=== PATIENT | female | born 1930 | race Caucasian/White ===

== ENCOUNTER 2017-04-23 06:53 | Emergency (ER) | payer MEDICARE, MEDICAID ==
[~2017-04-23] VITALS: Ht 160 cm; Wt 65.8 kg
[~2017-04-23 06:53] MED LIST: ACET325T53 PO; AMLO5TAB4 PO; AZIT500T2 PO; CLOP75TA15 PO; ESCI10TA PO; GABA-536 PO; LORA10TA7 PO; Meclizine Hcl PO; Metoprolol Tartrate PO; NITR100C6 PO; OLME40TA12 PO; PRED20TA PO
[2017-04-23] MEDS ORDERED: diphenhydrAMINE 50 MG/1 ML VIAL IM ONE (07:30)
--- NOTE | 2017-04-23 07:32 | NUR ---
mse completed, benadryl administered, pt d/c'd home, aci rx x1 given. pt ambulated w/o diff/ daughter present and to drive.
[2017-04-23 07:35] VITALS: BP 142/75
[2017-04-23] MEDS ORDERED: diphenhydrAMINE 50 MG/1 ML VIAL ONE (07:40)
== END 2017-04-23 07:36 | disposition home or self-care (01) ==
LOC: ER 06:56
DX: L25.9 Unspecified contact dermatitis, unspecified cause (principal); I10 Essential (primary) hypertension; M06.9 Rheumatoid arthritis, unspecified
CPT/HCPCS: A4663; J1200

== ENCOUNTER 2017-04-24 05:52 | Emergency (ER) | payer MEDICARE, MEDICAID ==
[~2017-04-24] VITALS: Ht 149.9 cm; Wt 68.0 kg
[2017-04-24] MEDS ORDERED: methylPREDNISolone SOD SUCC 125 MG/2 ML VIAL IV ONE (06:15)
[2017-04-24] MEDS ORDERED: diphenhydrAMINE 50 MG/1 ML VIAL IV ONE (06:15)
[2017-04-24] MEDS ORDERED: FAMOTIDINE. 20 MG/2 ML VIAL IV ONE ×2 (06:15→06:29)
--- NOTE | 2017-04-24 06:15 | NUR ---
PATIENT BROUGHT BACK BY DAUGHTER FOR WORSENING RASH ON FACE AND BODY, WAS SEEN HERE YESTERDAY FOR SIMILAR COMPLAINT
[2017-04-24] MEDS ORDERED: methylPREDNISolone SOD SUCC 125 MG/2 ML VIAL ONE (06:29)
[2017-04-24] MEDS ORDERED: diphenhydrAMINE 50 MG/1 ML VIAL ONE (06:29)
--- NOTE | 2017-04-24 06:34 | NUR ---
IV removed. Catheter intact and site benign. Pressure and 4x4 gauze applied to site. No bleeding noted.
[2017-04-24 06:36] VITALS: BP 125/72
--- NOTE | 2017-04-24 06:37 | NUR ---
Patient discharged to home in stable conditon WITH DAUGHTER TAKING PATIENT HOME. Written and verbal after care instructions given. Patient verbalizes understanding of instructions. WALKED OUT OF ER WITH STEADY GAIT
== END 2017-04-24 06:37 | disposition home or self-care (01) ==
LOC: ER 05:55
DX: L50.9 Urticaria, unspecified (principal); I10 Essential (primary) hypertension; M06.9 Rheumatoid arthritis, unspecified; G47.30 Sleep apnea, unspecified
CPT/HCPCS: A4663; J1200; J2930; J3490

== ENCOUNTER 2017-08-08 21:59 | Emergency (ER) | payer MEDICARE, MEDICAID ==
[~2017-08-08] VITALS: Ht 160 cm; Wt 68.0 kg
--- NOTE | 2017-08-08 22:40 | NUR ---
DR SABINA MADERA MD AT BEDSIDE FOR MSE.
--- NOTE | 2017-08-08 22:53 | NUR ---
XRAY AND LAB AT PT BEDSIDE.
[2017-08-08 23:12] LABS: BASOPHILS # (AUTO) 0.1 K/uL (0.0-8.0); BASOPHILS % (AUTO) 0.7 % (0.0-2.0); EOSINOPHILS # (AUTO) 0.1 K/uL (0.0-0.7); EOSINOPHILS % (AUTO) 0.6 % (0.0-7.0); HEMATOCRIT 38.4 % (31.2-41.9); HEMOGLOBIN 13.3 g/dL (10.9-14.3); LYMPHOCYTES # (AUTO) 1.1 K/uL (20.0-40.0); LYMPHOCYTES % (AUTO) 13.5 % (20.5-51.5); MEAN CORPUSCULAR HEMOGLOBIN 30.5 uug (24.7-32.8); MEAN CORPUSCULAR HGB CONC 35 g/dL (32.3-35.6); MEAN CORPUSCULAR VOLUME 88.3 fL (75.5-95.3); MONOCYTES # (AUTO) 0.4 K/uL (2.0-10.0); MONOCYTES % (AUTO) 5.4 % (0.0-11.0); NEUTROPHILS # (AUTO) 6.4 K/uL (1.8-8.9); NEUTROPHILS % (AUTO) 79.8 % (38.5-71.5); PLATELET COUNT (AUTO) 304 K/uL (179-408); RED BLOOD CELL COUNT(AUTO) 4.35 MIL/uL (3.63-4.92); WHITE BLOOD COUNT (AUTO) 8.1 K/uL (3.8-11.8)
[2017-08-08 23:23] LABS: CARBON DIOXIDE 25 mmol/L (21-32); CHLORIDE 88 mmol/L (98-107); CREATININE 0.9 mg/dL (0.6-1.3); GLUCOSE 120 mg/dL (74-106); POTASSIUM 3.9 mmol/L (3.5-5.1); UREA NITROGEN, BLOOD 29 mg/dL (7-18)
[2017-08-08 23:35] LABS: ALANINE AMINOTRANSFERASE 27 U/L (14-59); ALKALINE PHOSPHATASE 72 U/L (50-136); ASPARTATE AMINOTRANSFERASE 21 U/L (15-37); BILIRUBIN,DIRECT 0.1 mg/dL (0.0-0.2); BILIRUBIN,TOTAL 0.4 mg/dL (0.2-1.0); TOTAL PROTEIN, SERUM 8.3 g/dL (6.4-8.2)
--- NOTE | 2017-08-08 23:36 | NUR ---
PT SLEEPING IN BED W/ EYES CLOSED. DAUGHTER AT BEDSIDE. NO DISTRESS NOTED.
[2017-08-09] MEDS ORDERED: IV NORMAL SALINE 500 ML BAG IV ONE (00:15)
--- NOTE | 2017-08-09 01:30 | NUR ---
PT AMBULATED TO AND FROM BATHROOM W/ STEADY GAIT. DENIES SOB OR DIZZINESS. NO DISTRESS NOTED.
[2017-08-09 01:47] LABS: *BILIRUBIN,URIN NEGATIVE (NEGATIVE); *BLOOD, URINE 1+ (NEGATIVE); *CLARITY,URINE CLEAR (CLEAR); *COLOR,URINE YELLOW (YELLOW); *KETONES,URINE NEGATIVE (NEGATIVE); *PROTEIN,URINE 3+ (NEGATIVE); *UROBILINOGEN,URINE 0.2 E.U./dl (NORMAL); LEUKOCYTE ESTERASE ,URINE NEGATIVE (NEGATIVE); NITRITE, URINE NEGATIVE (NEGATIVE); UGLUCOSE NEGATIVE (NEGATIVE)
[2017-08-09 01:57] LABS: BACTERIA,URINE NONE SEEN /HPF (NONE SEEN); SQUAMOUS EPITHELIAL CELL,UR FEW /HPF (NONE SEEN); WBC,URINE 0-3 /HPF (0-3)
--- NOTE | 2017-08-09 02:25 | NUR ---
Patient discharged to home in stable conditon. Written and verbal after care instructions given. Patient verbalizes understanding of instructions. IV removed, w/ catheter intact. Pressure applied, and no bleeding noted at site. Pt accompanied by daughter, and ambulated from ER w/ use of cane.
[2017-08-09 02:29] VITALS: BP 132/76
== END 2017-08-09 02:10 | disposition home or self-care (01) ==
LOC: ER 21:59
DX: R51 Headache (principal); E87.1 Hypo-osmolality and hyponatremia; I10 Essential (primary) hypertension; Z90.710 Acquired absence of both cervix and uterus; Z79.2 Long term (current) use of antibiotics; Z79.01 Long term (current) use of anticoagulants; Z79.899 Other long term (current) drug therapy
CPT/HCPCS: 36415; 70030-TC; 70450; 71045; 83605; 84443; 85025; 85730; 87040; 87086; 93005; A4663; J7040

== ENCOUNTER 2017-08-12 19:31 | Emergency (ER) | payer MEDICARE, MEDICAID ==
[~2017-08-12] VITALS: Ht 152.4 cm; Wt 68.0 kg
--- NOTE | 2017-08-12 19:42 | NUR ---
PT BROUGHT IN BY DAUGHTER, WHO IS A LINECASTING MACHINE KEYBOARD OPERATOR HERE. DAUGHTER STATES PT HAS HEADACHE, IS DIAPHORETIC AND REELS HOT. REQUESTS RECHECK OF ELECTROLYTE PANEL. PT WAS HERE 4 DAYS AGO, AND WAS HYPONATREMIC. PT CURRENTY RESTING IN BED, WITH FAMILY AT BEDSIDE. NO DISTRESS NOTED. DENIES SOB. DENIES N/V OR DIARRHEA.
--- NOTE | 2017-08-12 19:44 | NUR ---
DR FUNEZ AT BEDSIDE FOR MSE.
[2017-08-12] MEDS ORDERED: ACETAMINOPHEN 325 MG TABLET PO ONE (20:00)
[2017-08-12] MEDS ORDERED: ACETAMINOPHEN 325 MG TABLET ONE (20:02)
--- NOTE | 2017-08-12 20:06 | NUR ---
LAB AT BEDSIDE FOR BLOOD DRAW
[2017-08-12 20:22] LABS: BASOPHILS # (AUTO) 0.1 K/uL (0.0-8.0); BASOPHILS % (AUTO) 0.9 % (0.0-2.0); EOSINOPHILS # (AUTO) 0.1 K/uL (0.0-0.7); EOSINOPHILS % (AUTO) 1.2 % (0.0-7.0); HEMATOCRIT 38.5 % (31.2-41.9); HEMOGLOBIN 13.3 g/dL (10.9-14.3); LYMPHOCYTES # (AUTO) 1.4 K/uL (20.0-40.0); LYMPHOCYTES % (AUTO) 23.6 % (20.5-51.5); MEAN CORPUSCULAR HEMOGLOBIN 30.4 uug (24.7-32.8); MEAN CORPUSCULAR HGB CONC 34 g/dL (32.3-35.6); MEAN CORPUSCULAR VOLUME 88.2 fL (75.5-95.3); MONOCYTES # (AUTO) 0.5 K/uL (2.0-10.0); MONOCYTES % (AUTO) 7.7 % (0.0-11.0); NEUTROPHILS # (AUTO) 4.1 K/uL (1.8-8.9); NEUTROPHILS % (AUTO) 66.6 % (38.5-71.5); PLATELET COUNT (AUTO) 295 K/uL (179-408); RED BLOOD CELL COUNT(AUTO) 4.36 MIL/uL (3.63-4.92); WHITE BLOOD COUNT (AUTO) 6.2 K/uL (3.8-11.8)
[2017-08-12 20:25] LABS: CARBON DIOXIDE 24 mmol/L (21-32); CHLORIDE 93 mmol/L (98-107); CREATININE 0.7 mg/dL (0.6-1.3); GLUCOSE 103 mg/dL (74-106); POTASSIUM 3.5 mmol/L (3.5-5.1); UREA NITROGEN, BLOOD 16 mg/dL (7-18)
[2017-08-12 20:32] LABS: *BILIRUBIN,URIN NEGATIVE (NEGATIVE); *BLOOD, URINE 2+ (NEGATIVE); *CLARITY,URINE CLEAR (CLEAR); *COLOR,URINE YELLOW (YELLOW); *KETONES,URINE NEGATIVE (NEGATIVE); *UROBILINOGEN,URINE 0.2 E.U./dl (NORMAL); LEUKOCYTE ESTERASE ,URINE NEGATIVE (NEGATIVE); NITRITE, URINE NEGATIVE (NEGATIVE); UGLUCOSE NEGATIVE (NEGATIVE)
[2017-08-12 20:36] LABS: *PROTEIN,URINE 3+ (NEGATIVE)
[2017-08-12 20:54] LABS: BACTERIA,URINE NONE SEEN /HPF (NONE SEEN); RBC,URINE 20-50 /HPF (0-3); SQUAMOUS EPITHELIAL CELL,UR FEW /HPF (NONE SEEN); WBC,URINE 0-3 /HPF (0-3)
--- NOTE | 2017-08-12 21:08 | NUR ---
Patient discharged to home in stable conditon. Written and verbal after care instructions given. Patient verbalizes understanding of instructions. Pt ambulated from ER w/ use of cane, accompanies by daughter. No distress noted. Copy of labs provided.
[2017-08-12 21:09] VITALS: BP 148/72
== END 2017-08-12 21:10 | disposition home or self-care (01) ==
LOC: ER 19:31
DX: E87.1 Hypo-osmolality and hyponatremia (principal); I10 Essential (primary) hypertension; R51 Headache; Z90.710 Acquired absence of both cervix and uterus; Z79.01 Long term (current) use of anticoagulants; Z79.2 Long term (current) use of antibiotics; Z79.899 Other long term (current) drug therapy
CPT/HCPCS: 36415; 70030-TC; 85025; 87086; 93005; A4663

== ENCOUNTER 2017-09-18 18:35 | Emergency (ER) | payer MEDICARE, MEDICAID ==
[~2017-09-18] VITALS: Ht 160 cm; Wt 68.0 kg
--- NOTE | 2017-09-18 19:12 | NUR ---
still for urine & monitor, SBAR to REJI Chamberlain
[2017-09-18 19:17] LABS: BASOPHILS # (AUTO) 0.1 K/uL (0.0-8.0); EOSINOPHILS % (AUTO) 0.9 % (0.0-7.0); HEMOGLOBIN 12.4 g/dL (10.9-14.3); LYMPHOCYTES % (AUTO) 19.6 % (20.5-51.5); MEAN CORPUSCULAR HEMOGLOBIN 30.6 uug (24.7-32.8); MEAN CORPUSCULAR HGB CONC 34 g/dL (32.3-35.6); MEAN CORPUSCULAR VOLUME 89.3 fL (75.5-95.3); MONOCYTES # (AUTO) 0.4 K/uL (2.0-10.0); MONOCYTES % (AUTO) 7.3 % (0.0-11.0); NEUTROPHILS # (AUTO) 3.7 K/uL (1.8-8.9); NEUTROPHILS % (AUTO) 71.2 % (38.5-71.5); PLATELET COUNT (AUTO) 235 K/uL (179-408); RED BLOOD CELL COUNT(AUTO) 4.03 MIL/uL (3.63-4.92); WHITE BLOOD COUNT (AUTO) 5.3 K/uL (3.8-11.8)
[2017-09-18 19:22] LABS: CARBON DIOXIDE 29 mmol/L (21-32); CHLORIDE 100 mmol/L (98-107); CREATININE 1.1 mg/dL (0.6-1.3); GLUCOSE 111 mg/dL (74-106); POTASSIUM 3.7 mmol/L (3.5-5.1); UREA NITROGEN, BLOOD 25 mg/dL (7-18)
[2017-09-18 19:28] LABS: ALANINE AMINOTRANSFERASE 22 U/L (14-59); ALKALINE PHOSPHATASE 63 U/L (50-136); ASPARTATE AMINOTRANSFERASE 18 U/L (15-37); BILIRUBIN,DIRECT 0.1 mg/dL (0.0-0.2); BILIRUBIN,TOTAL 0.4 mg/dL (0.2-1.0); TOTAL PROTEIN, SERUM 7.5 g/dL (6.4-8.2)
[2017-09-18 19:39] LABS: *BILIRUBIN,URIN NEGATIVE (NEGATIVE); *BLOOD, URINE 2+ (NEGATIVE); *CLARITY,URINE CLEAR (CLEAR); *COLOR,URINE YELLOW (YELLOW); *KETONES,URINE NEGATIVE (NEGATIVE); *PROTEIN,URINE 2+ (NEGATIVE); *UROBILINOGEN,URINE 0.2 E.U./dl (NORMAL); LEUKOCYTE ESTERASE ,URINE NEGATIVE (NEGATIVE); NITRITE, URINE NEGATIVE (NEGATIVE); PH,URINE 7.5 (5.0-8.0); UGLUCOSE NEGATIVE (NEGATIVE)
[2017-09-18 19:55] LABS: RBC,URINE 20-50 /HPF (0-3); WBC,URINE 0-3 /HPF (0-3)
[2017-09-18 19:56] LABS: SQUAMOUS EPITHELIAL CELL,UR FEW /HPF (NONE SEEN)
[2017-09-18] MEDS ORDERED: NITROFURANTOIN/NITROFURAN MAC 100 MG CAPSULE ONE (20:11)
[2017-09-18] MEDS ORDERED: NITROFURANTOIN/NITROFURAN MAC 100 MG CAPSULE PO ONE (20:15)
--- NOTE | 2017-09-18 20:15 | NUR ---
Patient discharged to home in stable conditon. Written and verbal after care instructions given. Patient verbalizes understanding of instructions. Pt ambulated out of ER with steady gait, no acute signs of distress, VSS, all belongings taken.
[2017-09-18 20:20] VITALS: BP 160/80
== END 2017-09-18 20:15 | disposition home or self-care (01) ==
LOC: ER 18:39
DX: R30.0 Dysuria (principal); G47.30 Sleep apnea, unspecified; I10 Essential (primary) hypertension
CPT/HCPCS: 36415; 85025; 87086; A4663

== ENCOUNTER 2017-09-20 21:53 | Emergency (ER) | payer MEDICARE, MEDICAID ==
[~2017-09-20] VITALS: Ht 157.5 cm; Wt 67.1 kg
--- NOTE | 2017-09-20 23:30 | NUR ---
PT DECIDED TO LEAVE.
== END 2017-09-20 23:50 | disposition left against medical advice (07) ==
LOC: ER 21:55
DX: Z53.21 Procedure and treatment not carried out due to patient leaving prior to being seen by health care provider (principal)
CPT/HCPCS: A4663

== ENCOUNTER 2018-04-29 20:16 | Emergency (ER) | END 2018-04-29 22:56 | disposition home or self-care (01) | DX: R53.1 Weakness (principal); E87.1 Hypo-osmolality and hyponatremia; Z90.710 Acquired absence of both cervix and uterus; Z79.899 Other long term (current) drug therapy; Z79.01 Long term (current) use of anticoagulants ==

== ENCOUNTER 2018-06-20 10:06 | Emergency (ER) | payer MEDICARE, MEDICAID ==
[~2018-06-20] VITALS: Ht 157.5 cm; Wt 68.0 kg
[~2018-06-20 10:06] MED LIST changes: -AZIT500T2 PO; -PRED20TA PO
[2018-06-20 10:37] LABS: BASOPHILS % (AUTO) 0.7 % (0.0-2.0); EOSINOPHILS # (AUTO) 0.4 K/uL (0.0-0.7); EOSINOPHILS % (AUTO) 8.4 % (0.0-7.0); HEMATOCRIT 35.6 % (31.2-41.9); HEMOGLOBIN 11.8 g/dL (10.9-14.3); LYMPHOCYTES # (AUTO) 1.1 K/uL (20.0-40.0); LYMPHOCYTES % (AUTO) 23.4 % (20.5-51.5); MEAN CORPUSCULAR HEMOGLOBIN 29.5 uug (24.7-32.8); MEAN CORPUSCULAR HGB CONC 33 g/dL (32.3-35.6); MEAN CORPUSCULAR VOLUME 89.2 fL (75.5-95.3); MONOCYTES # (AUTO) 0.4 K/uL (2.0-10.0); NEUTROPHILS # (AUTO) 2.7 K/uL (1.8-8.9); NEUTROPHILS % (AUTO) 58.5 % (38.5-71.5); PLATELET COUNT (AUTO) 201 K/uL (179-408); RED BLOOD CELL COUNT(AUTO) 3.99 MIL/uL (3.63-4.92); WHITE BLOOD COUNT (AUTO) 4.6 K/uL (3.8-11.8)
--- NOTE | 2018-06-20 10:40 | NUR ---
PATIENT WAS SEEN BY . FLU SWAB SENT TO LAB. EKG PÉREZ. AWAITING TEST RESULTS. PATIENT IS AWAKE AND ALERT.
[2018-06-20 10:44] LABS: CARBON DIOXIDE 29 mmol/L (21-32); CHLORIDE 102 mmol/L (98-107); GLUCOSE 102 mg/dL (74-106); POTASSIUM 4.1 mmol/L (3.5-5.1); UREA NITROGEN, BLOOD 19 mg/dL (7-18)
[2018-06-20 10:50] LABS: ALANINE AMINOTRANSFERASE 12 U/L (14-59); ALKALINE PHOSPHATASE 72 U/L (50-136); ASPARTATE AMINOTRANSFERASE 19 U/L (15-37); BILIRUBIN,DIRECT 0.1 mg/dL (0.0-0.2); BILIRUBIN,TOTAL 0.4 mg/dL (0.2-1.0)
[2018-06-20] MEDS ORDERED: ALBUTEROL SULFATE 2.5 MG/3 ML NEBU NEB ONE (11:00)
[2018-06-20] MEDS ORDERED: IPRATROPIUM BROMIDE 0.5 MG/2.5 ML NEBU NEB ONE (11:00)
[2018-06-20] MEDS ORDERED: IPRATROPIUM BROMIDE 0.5 MG/2.5 ML NEBU ONE (11:08)
[2018-06-20] MEDS ORDERED: ALBUTEROL SULFATE 2.5 MG/3 ML NEBU ONE (11:08)
--- NOTE | 2018-06-20 11:27 | NUR ---
DC, RX AND FOLLOW UP INSTRUCTIONS GIVEN AND EXPLAINED TO PATIENT AND DAUGHTER WHO STATE THEY UNDERSTAND ALL INSTRUCTIONS
[2018-06-20] MEDS ORDERED: ACETAMINOPHEN 325 MG TABLET ONE (11:37)
[2018-06-20] MEDS ORDERED: ACETAMINOPHEN ES 500 MG TABLET PO ONE (11:45)
== END 2018-06-20 11:35 | disposition home or self-care (01) ==
LOC: ER 10:06
DX: J40 Bronchitis, not specified as acute or chronic (principal); Z90.710 Acquired absence of both cervix and uterus; Z79.01 Long term (current) use of anticoagulants; Z79.899 Other long term (current) drug therapy
CPT/HCPCS: 36415; 70030-TC; 71045; 83605; 85025; 85730; 87040; 87400; 93005; J3590

== ENCOUNTER 2018-06-28 10:06 | Emergency (ER) | payer MEDICARE, MEDICAID ==
[~2018-06-28] VITALS: Ht 157.5 cm; Wt 68.0 kg
[2018-06-28 10:47] LABS: *BILIRUBIN,URIN NEGATIVE (NEGATIVE); *BLOOD, URINE NEGATIVE (NEGATIVE); *CLARITY,URINE CLEAR (CLEAR); *COLOR,URINE YELLOW (YELLOW); *KETONES,URINE NEGATIVE (NEGATIVE); *UROBILINOGEN,URINE 0.2 E.U./dl (NORMAL); LEUKOCYTE ESTERASE ,URINE NEGATIVE (NEGATIVE); NITRITE, URINE NEGATIVE (NEGATIVE); UGLUCOSE NEGATIVE (NEGATIVE)
[2018-06-28 10:55] LABS: BACTERIA,URINE FEW /HPF (NONE SEEN); RBC,URINE NONE SEEN /HPF (0-3); SQUAMOUS EPITHELIAL CELL,UR FEW /HPF (NONE SEEN); WBC,URINE 0-3 /HPF (0-3)
--- NOTE | 2018-06-28 11:01 | NUR ---
PT IS IN ROOM #2A. DR ADAMS EVALUATED THE PT.
[2018-06-28] MEDS ORDERED: LEVOFLOXACIN 750 MG TABLET PO ONE (11:30)
[2018-06-28] MEDS ORDERED: LEVOFLOXACIN 750 MG TABLET ONE (11:33)
--- NOTE | 2018-06-28 11:35 | NUR ---
PT WAS D/C'D TO HOME. D/C INSTRUCTIONS GIVEN TO THE PT.
[2018-06-28 11:36] VITALS: BP 142/72
== END 2018-06-28 11:37 | disposition home or self-care (01) ==
LOC: ER 10:06
DX: J40 Bronchitis, not specified as acute or chronic (principal); R35.0 Frequency of micturition; Z90.710 Acquired absence of both cervix and uterus; Z79.01 Long term (current) use of anticoagulants; Z79.899 Other long term (current) drug therapy
CPT/HCPCS: 71045; A4663

== ENCOUNTER 2019-02-22 20:38 | Emergency (ER) | payer MEDICARE, MEDICAID ==
[~2019-02-22] VITALS: Ht 157.5 cm; Wt 65.8 kg
[2019-02-22 21:36] LABS: BASOPHILS # (AUTO) 0.1 K/uL (0.0-8.0); BASOPHILS % (AUTO) 1.3 % (0.0-2.0); EOSINOPHILS # (AUTO) 0.5 K/uL (0.0-0.7); EOSINOPHILS % (AUTO) 8.9 % (0.0-7.0); HEMOGLOBIN 11.7 g/dL (10.9-14.3); LYMPHOCYTES # (AUTO) 1.6 K/uL (20.0-40.0); LYMPHOCYTES % (AUTO) 27.7 % (20.5-51.5); MEAN CORPUSCULAR HEMOGLOBIN 30.3 uug (24.7-32.8); MEAN CORPUSCULAR HGB CONC 33 g/dL (32.3-35.6); MEAN CORPUSCULAR VOLUME 93.2 fL (75.5-95.3); MONOCYTES # (AUTO) 0.5 K/uL (2.0-10.0); MONOCYTES % (AUTO) 9.1 % (0.0-11.0); NEUTROPHILS # (AUTO) 3.1 K/uL (1.8-8.9); PLATELET COUNT (AUTO) 197 K/uL (179-408); RED BLOOD CELL COUNT(AUTO) 3.86 MIL/uL (3.63-4.92); WHITE BLOOD COUNT (AUTO) 5.9 K/uL (3.8-11.8)
[2019-02-22 21:43] LABS: POTASSIUM 3.9 mmol/L (3.5-5.1)
[2019-02-22 21:44] LABS: CREATININE 1.3 mg/dL (0.6-1.3)
[2019-02-22 21:56] LABS: BILIRUBIN,DIRECT 0.1 mg/dL (0.0-0.2); BILIRUBIN,TOTAL 0.2 mg/dL (0.2-1.0)
[2019-02-22] MEDS ORDERED: FUROSEMIDE 20 MG TABLET PO ONE (22:15)
[2019-02-22 22:22] VITALS: BP 127/73
[2019-02-22] MEDS ORDERED: FUROSEMIDE 20 MG TABLET ONE (22:22)
== END 2019-02-22 22:24 | disposition home or self-care (01) ==
LOC: ER 20:38
DX: I11.0 Hypertensive heart disease with heart failure (principal); I50.9 Heart failure, unspecified; F41.9 Anxiety disorder, unspecified; Z90.710 Acquired absence of both cervix and uterus; Z79.899 Other long term (current) drug therapy; Z79.01 Long term (current) use of anticoagulants
CPT/HCPCS: 36415; 70030-TC; 71045; 85025; 87040; 93005; A4663

== ENCOUNTER 2019-05-20 20:49 | Inpatient (IN) | payer MEDICARE, OTHER ==
[~2019-05-20] VITALS: Ht 157.5 cm; Wt 72.4 kg
[2019-05-20 22:02] LABS: BASOPHILS # (AUTO) 0.1 K/uL (0.0-8.0); BASOPHILS % (AUTO) 0.8 % (0.0-2.0); EOSINOPHILS # (AUTO) 0.1 K/uL (0.0-0.7); EOSINOPHILS % (AUTO) 0.9 % (0.0-7.0); HEMATOCRIT 35.7 % (31.2-41.9); HEMOGLOBIN 11.9 g/dL (10.9-14.3); LYMPHOCYTES # (AUTO) 0.8 K/uL (20.0-40.0); LYMPHOCYTES % (AUTO) 12.2 % (20.5-51.5); MEAN CORPUSCULAR HEMOGLOBIN 29.9 uug (24.7-32.8); MEAN CORPUSCULAR HGB CONC 33 g/dL (32.3-35.6); MONOCYTES # (AUTO) 0.4 K/uL (2.0-10.0); MONOCYTES % (AUTO) 6.4 % (0.0-11.0); NEUTROPHILS # (AUTO) 5.5 K/uL (1.8-8.9); NEUTROPHILS % (AUTO) 79.7 % (38.5-71.5); PLATELET COUNT (AUTO) 225 K/uL (179-408); RED BLOOD CELL COUNT(AUTO) 3.96 MIL/uL (3.63-4.92); WHITE BLOOD COUNT (AUTO) 6.9 K/uL (3.8-11.8)
[2019-05-20 22:11] LABS: CREATININE 1.2 mg/dL (0.6-1.3); POTASSIUM 3.3 mmol/L (3.5-5.1)
[2019-05-20] MEDS ORDERED: KETOROLAC TROMETHAMINE 30 MG INJ IM ONE (22:15)
[2019-05-20] MEDS ORDERED: MORPHINE SULFATE 2 MG/1 ML DISP.SYRIN IM ONE (22:15)
[2019-05-20 22:16] LABS: BILIRUBIN,DIRECT 0.1 mg/dL (0.0-0.2); BILIRUBIN,TOTAL 0.3 mg/dL (0.2-1.0); TOTAL PROTEIN, SERUM 7.1 g/dL (6.4-8.2)
[2019-05-20] MEDS ORDERED: KETOROLAC TROMETHAMINE 30 MG INJ ONE (22:17)
[2019-05-20] MEDS ORDERED: MORPHINE SULFATE 2 MG/1 ML DISP.SYRIN ONE (22:18)
--- NOTE | 2019-05-20 22:58 | NUR ---
PT O2SAT AT 89-91%, RT AWARE ERMD AWARE PLACED ON SUPPORTIVE O2 VIA NC SPO2 AT 96-99% 2LPM
[2019-05-20] MEDS ORDERED: ALBUTEROL SULFATE 2.5 MG/3 ML NEBU NEB ONE (23:00)
[2019-05-20] MEDS ORDERED: IPRATROPIUM BROMIDE 0.5 MG/2.5 ML NEBU NEB ONE (23:00)
[2019-05-20] MEDS ORDERED: ALBUTEROL SULFATE 2.5 MG/ 0.5 ML NEBU ONE (23:10)
[2019-05-20] MEDS ORDERED: IPRATROPIUM BROMIDE 0.5 MG/2.5 ML NEBU ONE (23:10)
--- NOTE | 2019-05-20 23:56 | NUR ---
[facility]IT[facility] FOR ONCALL :Seth FRENCH OR Rony ANGELO BELONGINGS LIST SIGNED
[2019-05-20] MEDS: FENTANYL CITRATE 100 MCG/2 ML AMPUL IV ONE (23:57)
--- NOTE | 2019-05-21 00:31 | NUR ---
CALL BACK FR Rony ANGELO
--- NOTE | 2019-05-21 00:40 | NUR ---
HAND OFF AND SBAR GIVEN TO MAUDE RN PT TO ADMIT TO TELE RM 305 DX COPD UNDER Rony ANGELO
[2019-05-21] MEDS ORDERED: methylPREDNISolone SOD SUCC 125 MG/2 ML VIAL IV ONE (00:45)
[2019-05-21] MEDS: FENTANYL CITRATE 100 MCG/2 ML AMPUL IV ONE (00:50)
--- NOTE | 2019-05-21 00:58 | NUR ---
TRANSPORTED [facility] BY RN O2 AT 2LPM
--- NOTE | 2019-05-21 01:00 | NUR ---
RECEIVED PT FROM ER VIA [facility]. UNDER THE CARE OF DR. HARSHIL ANGELO. DX; RESPIRATORY FAILURE. PT IN NO ACUTE DISTRESS. BELONGING LIST DONE. CUSTODIAL ASSESSMENT DONE. ADMISSION PROCESS AND CARE PLAN INITIATED. SAFETY AND COMFORT PROVIDED. WILL CONTINUE TO MONITOR.
[2019-05-21] MEDS ORDERED: IV NS 1000 ML 1,000 ML IV PRN (01:24)
[2019-05-21] MEDS ORDERED: Z GUARD REMEDY PASTE 57 GM TUBE TOP PRN (01:30)
[2019-05-21] MEDS ORDERED: ONDANSETRON 4 MG/2 ML VIAL IV PRN (01:30)
[2019-05-21] MEDS ORDERED: MECLIZINE HCL 12.5 MG PO PRN (01:30)
[2019-05-21] MEDS ORDERED: ACETAMINOPHEN 325 MG TABLET PO PRN (01:30)
[2019-05-21 02:34] VITALS: BP 182/82
[2019-05-21 03:34] VITALS: BP 150/79
[2019-05-21 05:16] VITALS: BP_SYST 145; BP_SYST 191; BP_DIAS 98
[2019-05-21] MEDS: methylPREDNISolone SOD SUCC 40 MG/ML VIAL IV SCH ×2 (06:01→14:07)
--- NOTE | 2019-05-21 06:08 | NUR ---
Pt in no acute distress. Prescribed medication given and pt tolerated it well. Iv intact. Safety and comfort provided. All needs are met. Will endorse to incoming nurse for continuity of care.
[2019-05-21 07:05] LABS: CREATININE 1.1 mg/dL (0.6-1.3); MAGNESIUM 1.8 mg/dL (1.8-2.4); PHOSPHOROUS 4.1 mg/dL (2.5-4.9); POTASSIUM 3.5 mmol/L (3.5-5.1)
[2019-05-21] MEDS ORDERED: MECLIZINE HCL 12.5 MG TABLET PO PRN (07:15)
[2019-05-21 07:17] LABS: THYROID STIMULATING HORMONE 0.794 mIU/mL (0.358-3.740)
--- NOTE | 2019-05-21 07:40 | NUR ---
Received patient in Bed, awake and verbally responsive. Yumiko speaking with caregiver at bedside. No signs of distress noted. No SOB. No complain of pain or discomfort noted. Kept the bed in lowest position. Kept the call light within easy reach. Will continue to monitor.
[2019-05-21 07:50] LABS: BASOPHILS % (AUTO) 0.5 % (0.0-2.0); HEMATOCRIT 36.8 % (31.2-41.9); HEMOGLOBIN 12.1 g/dL (10.9-14.3); LYMPHOCYTES # (AUTO) 0.5 K/uL (20.0-40.0); LYMPHOCYTES % (AUTO) 8.7 % (20.5-51.5); MEAN CORPUSCULAR HEMOGLOBIN 30.1 uug (24.7-32.8); MEAN CORPUSCULAR HGB CONC 33 g/dL (32.3-35.6); MEAN CORPUSCULAR VOLUME 91.4 fL (75.5-95.3); MONOCYTES % (AUTO) 0.8 % (0.0-11.0); NEUTROPHILS # (AUTO) 5.3 K/uL (1.8-8.9); PLATELET COUNT (AUTO) 208 K/uL (179-408); RED BLOOD CELL COUNT(AUTO) 4.02 MIL/uL (3.63-4.92); WHITE BLOOD COUNT (AUTO) 5.9 K/uL (3.8-11.8)
[2019-05-21] MEDS: LORATADINE 10 MG TABLET PO SCH (08:29)
[2019-05-21] MEDS: LOSARTAN POTASSIUM 50 MG TABLET PO SCH (08:30)
[2019-05-21] MEDS: AMLODIPINE 5 MG TABLET PO SCH (08:30)
[2019-05-21] MEDS: ALBUTEROL SULFATE 2.5 MG/ 0.5 ML NEBU NEB SCH ×4 (08:41→19:57)
[2019-05-21] MEDS: IPRATROPIUM BROMIDE 0.5 MG/2.5 ML NEBU NEB SCH ×4 (08:41→19:57)
[2019-05-21] MEDS ORDERED: NITROFURANTOIN/NITROFURAN MAC 100 MG CAPSULE PO SCH (09:00)
[2019-05-21] MEDS ORDERED: Medication Not On Formulary EA (Olmesartan Medoxomil (Benicar) 40 MG) PO SCH (09:00)
[2019-05-21 11:38] VITALS: BP 183/93
[2019-05-21] MEDS: MORPHINE SULFATE 2 MG/1 ML DISP.SYRIN IV PRN (12:02)
[2019-05-21] MEDS: CLOPIDOGREL 75 MG TABLET PO SCH (12:16)
[2019-05-21] MEDS: CLONIDINE HCL 0.1 MG TABLET PO PRN ×2 (13:20→21:13)
[2019-05-21 15:04] VITALS: BP 118/76
[2019-05-21] MEDS: HYDROCODONE/APAP 5-325MG TABLET PO PRN (16:01)
--- NOTE | 2019-05-21 18:20 | NUR ---
Patient in bed, awake and verbally responsive. No signs of distress noted. NO SOB. Pain Medication given as ordered. Patient is ambulatory, able walk to restroom with assist. Caregiver at bedside throughout this shift. All due medications given as ordered. Kept clean and comfortable. kept the call light within easy reach. Will endorse to Oncoming Nurse.
[2019-05-21 20:02] VITALS: BP 158/85
[2019-05-21] MEDS ORDERED: IPRATROPIUM BROMIDE 0.5 MG/2.5 ML NEBU NEB PRN (21:00)
[2019-05-21] MEDS: ESCITALOPRAM OXALATE 10 MG TABLET PO SCH (21:04)
[2019-05-21] MEDS: GABAPENTIN 400 MG CAPSULE PO SCH (21:04)
[2019-05-22 00:45] VITALS: BP 140/72
[2019-05-22 04:00] VITALS: BP 163/84
[2019-05-22 06:47] LABS: BILIRUBIN,TOTAL 0.3 mg/dL (0.2-1.0); CREATININE 1.1 mg/dL (0.6-1.3); MAGNESIUM 1.9 mg/dL (1.8-2.4); PHOSPHOROUS 3.4 mg/dL (2.5-4.9); POTASSIUM 3.9 mmol/L (3.5-5.1); TOTAL PROTEIN, SERUM 6.6 g/dL (6.4-8.2)
--- NOTE | 2019-05-22 07:35 | NUR ---
Received in Bed, awake, calm and verbally responsive, farsi Speaking. No signs of distress noted. No SOB. No signs/complain at this time. kept the call light within easy reach. Kept the bed in lowest position. Will continue to monitor.
[2019-05-22] MEDS: ALBUTEROL SULFATE 2.5 MG/3 ML NEBU NEB PRN ×3 (07:40→15:21)
[2019-05-22] MEDS: IPRATROPIUM BROMIDE 0.5 MG/2.5 ML NEBU NEB SCH ×5 (07:40→20:10)
[2019-05-22 07:47] LABS: *BILIRUBIN,URIN NEGATIVE (NEGATIVE); *BLOOD, URINE 2+ (NEGATIVE); *CLARITY,URINE SLIGHTLY CLOUDY (CLEAR); *COLOR,URINE YELLOW (YELLOW); *KETONES,URINE NEGATIVE (NEGATIVE); *UROBILINOGEN,URINE 0.2 E.U./dl (NORMAL); LEUKOCYTE ESTERASE ,URINE 1+ (NEGATIVE); NITRITE, URINE NEGATIVE (NEGATIVE); PH,URINE 5.5 (5.0-8.0); UGLUCOSE NEGATIVE (NEGATIVE)
--- NOTE | 2019-05-22 08:00 | NUR ---
Patient UA resulted with +3 Protein, Dr. Patel made aware.
[2019-05-22 08:01] LABS: WBC,URINE 50-80 /HPF (0-3)
[2019-05-22 08:02] LABS: BACTERIA,URINE MANY /HPF (NONE SEEN); SQUAMOUS EPITHELIAL CELL,UR FEW /HPF (NONE SEEN)
[2019-05-22] MEDS: AMLODIPINE 5 MG TABLET PO SCH (08:29)
[2019-05-22] MEDS: LORATADINE 10 MG TABLET PO SCH (08:29)
[2019-05-22] MEDS: FUROSEMIDE 20 MG/2 ML VIAL IV SCH (08:29)
[2019-05-22] MEDS: LOSARTAN POTASSIUM 50 MG TABLET PO SCH (08:30)
[2019-05-22 08:31] LABS: BASOPHILS % (AUTO) 0.1 % (0.0-2.0); EOSINOPHILS % (AUTO) 0.1 % (0.0-7.0); LYMPHOCYTES # (AUTO) 0.9 K/uL (20.0-40.0); LYMPHOCYTES % (AUTO) 8.1 % (20.5-51.5); MEAN CORPUSCULAR HEMOGLOBIN 30.7 uug (24.7-32.8); MEAN CORPUSCULAR HGB CONC 34 g/dL (32.3-35.6); MEAN CORPUSCULAR VOLUME 91.6 fL (75.5-95.3); MONOCYTES # (AUTO) 0.8 K/uL (2.0-10.0); MONOCYTES % (AUTO) 7.5 % (0.0-11.0); NEUTROPHILS # (AUTO) 9.1 K/uL (1.8-8.9); NEUTROPHILS % (AUTO) 84.2 % (38.5-71.5); RED BLOOD CELL COUNT(AUTO) 3.57 MIL/uL (3.63-4.92)
[2019-05-22 08:33] LABS: WHITE BLOOD COUNT (AUTO) 10.8 K/uL (3.8-11.8)
[2019-05-22 08:34] LABS: HEMATOCRIT 32.7 % (31.2-41.9); PLATELET COUNT (AUTO) 132 K/uL (179-408)
[2019-05-22] MEDS: MORPHINE SULFATE 2 MG/1 ML DISP.SYRIN IV PRN ×2 (10:22→16:25)
[2019-05-22] MEDS: CEFTRIAXONE 1 G in IV DEXTROSE 5% 50 ML IV SCH (11:03)
[2019-05-22 12:19] VITALS: BP 126/63
[2019-05-22 16:15] VITALS: BP 160/77
[2019-05-22] MEDS ORDERED: SOLI5TAB2 PO (16:49)
[2019-05-22 16:53] VITALS: BP 137/80
--- NOTE | 2019-05-22 18:41 | NUR ---
Patient in Bed, awake and verbally responsive. Farsi Speaking. No signs of distress noted. No SOB. Pain medication given as Ordered. Morphine Sulfate 2mg given x 2 for Right Rib Pain, All due medications given as ordered. Kept clean and comfortable. Kept the call light within easy reach. Will endorse to Oncoming Nurse.
[2019-05-22 20:21] VITALS: BP 133/79
[2019-05-22] MEDS: ESCITALOPRAM OXALATE 10 MG TABLET PO SCH (20:24)
[2019-05-22] MEDS: GABAPENTIN 400 MG CAPSULE PO SCH (20:24)
[2019-05-23] MEDS: CLONIDINE HCL 0.1 MG TABLET PO PRN (00:32)
[2019-05-23 00:46] VITALS: BP 173/94
--- NOTE | 2019-05-23 01:32 | NUR ---
clonidine administered for high bp. rechecked bp and currently at 150/82. will continue to monitor.
[2019-05-23] MEDS: HYDROCODONE/APAP 5-325MG TABLET PO PRN (01:51)
[2019-05-23] MEDS: MAGNESIUM HYDROXIDE 30 ML LIQUID UDC PO PRN (01:51)
--- NOTE | 2019-05-23 05:06 | NUR ---
received patient in bed with daughter at bedside no signs of acute distress. a/o x1. v/s stable currently stable. all medications administered and needs met. will continue to monitor and endorse care accordingly. safety and comfort measures provided. bed in lowest position, side rails up x2, and bed alarm on. c/o of pain, [place] administered x1, tolerated well. will continue to monitor and endorse care accordingly.
[2019-05-23 05:40] VITALS: BP 144/57
--- NOTE | 2019-05-23 07:30 | NUR ---
awake, up on bed. denies acute pain. resting well.
[2019-05-23 08:16] LABS: BASOPHILS % (AUTO) 0.4 % (0.0-2.0); EOSINOPHILS # (AUTO) 0.3 K/uL (0.0-0.7); EOSINOPHILS % (AUTO) 4.1 % (0.0-7.0); HEMATOCRIT 33.5 % (31.2-41.9); HEMOGLOBIN 11.1 g/dL (10.9-14.3); LYMPHOCYTES % (AUTO) 12.9 % (20.5-51.5); MEAN CORPUSCULAR HEMOGLOBIN 30.3 uug (24.7-32.8); MEAN CORPUSCULAR HGB CONC 33 g/dL (32.3-35.6); MEAN CORPUSCULAR VOLUME 91.3 fL (75.5-95.3); MONOCYTES # (AUTO) 0.6 K/uL (2.0-10.0); MONOCYTES % (AUTO) 8.3 % (0.0-11.0); NEUTROPHILS # (AUTO) 5.6 K/uL (1.8-8.9); NEUTROPHILS % (AUTO) 74.3 % (38.5-71.5); PLATELET COUNT (AUTO) 186 K/uL (179-408); RED BLOOD CELL COUNT(AUTO) 3.68 MIL/uL (3.63-4.92); WHITE BLOOD COUNT (AUTO) 7.5 K/uL (3.8-11.8)
[2019-05-23] MEDS: IPRATROPIUM BROMIDE 0.5 MG/2.5 ML NEBU NEB SCH ×4 (08:16→21:31)
[2019-05-23] MEDS: ALBUTEROL SULFATE 2.5 MG/3 ML NEBU NEB PRN ×3 (08:17→21:31)
[2019-05-23] MEDS: CLOPIDOGREL 75 MG TABLET PO SCH (08:46)
[2019-05-23] MEDS: LORATADINE 10 MG TABLET PO SCH (08:46)
[2019-05-23] MEDS: AMLODIPINE 5 MG TABLET PO SCH (08:52)
[2019-05-23] MEDS: FUROSEMIDE 20 MG/2 ML VIAL IV SCH (08:53)
[2019-05-23] MEDS: LOSARTAN POTASSIUM 50 MG TABLET PO SCH (09:00)
[2019-05-23 10:09] LABS: CREATININE 1.1 mg/dL (0.6-1.3); MAGNESIUM 2.1 mg/dL (1.8-2.4); PHOSPHOROUS 3.5 mg/dL (2.5-4.9); POTASSIUM 3.8 mmol/L (3.5-5.1)
[2019-05-23] MEDS: MORPHINE SULFATE 2 MG/1 ML DISP.SYRIN IV PRN ×2 (10:39→21:35)
[2019-05-23] MEDS: CEFTRIAXONE 1 G in IV DEXTROSE 5% 50 ML IV SCH (11:14)
[2019-05-23 11:47] VITALS: BP 125/72
--- NOTE | 2019-05-23 13:00 | NUR ---
daughter and son in law in , supportive of patient care. assisted to go to brp, voided and return to bed. appetite fair.
--- NOTE | 2019-05-23 15:07 | NUR ---
dc tele as ordered
[2019-05-23 15:55] VITALS: BP 145/83
--- NOTE | 2019-05-23 16:24 | NUR ---
daughter at bedside, supportive of care. brp with walker assistance, change gowm and linen, tolerated well.
--- NOTE | 2019-05-23 18:07 | NUR ---
appetite good this dinner, tolerating food well
[2019-05-23 20:58] VITALS: BP 138/76
[2019-05-23] MEDS: ESCITALOPRAM OXALATE 10 MG TABLET PO SCH (21:09)
[2019-05-23] MEDS: GABAPENTIN 400 MG CAPSULE PO SCH (21:09)
[2019-05-24 01:06] VITALS: BP 146/82
--- NOTE | 2019-05-24 05:29 | NUR ---
patient received lying in bed. no signs of acute distress noted throughout shift. v/s stable. belongings list completed on my shift. all medications administered and needs met. safety and comfort measures provided. bed in lowest position, side rails upx2, and bed alarm on. will continue to monitor and endorse care to morning shift.
[2019-05-24] MEDS: MAGNESIUM HYDROXIDE 30 ML LIQUID UDC PO PRN (05:40)
[2019-05-24 05:51] VITALS: BP 104/54
[2019-05-24 08:00] VITALS: BP 129/46
[2019-05-24] MEDS: IPRATROPIUM BROMIDE 0.5 MG/2.5 ML NEBU NEB SCH ×4 (08:39→19:49)
[2019-05-24] MEDS: FUROSEMIDE 20 MG/2 ML VIAL IV SCH (09:09)
[2019-05-24] MEDS: LORATADINE 10 MG TABLET PO SCH (09:09)
[2019-05-24] MEDS: AMLODIPINE 5 MG TABLET PO SCH (09:09)
[2019-05-24] MEDS: LOSARTAN POTASSIUM 50 MG TABLET PO SCH (09:10)
[2019-05-24 11:50] VITALS: BP 136/75
[2019-05-24] MEDS: CEFTRIAXONE 1 G in IV DEXTROSE 5% 50 ML IV SCH (12:04)
[2019-05-24] MEDS: CLONIDINE HCL 0.1 MG TABLET PO PRN (15:13)
[2019-05-24 16:04] VITALS: BP 156/77
[2019-05-24] MEDS ORDERED: ALBU2.5V7 NEB (17:05)
[2019-05-24] MEDS ORDERED: LOSA50TA3 PO (17:05)
[2019-05-24] MEDS ORDERED: FURO-152 PO (17:05)
[2019-05-24] MEDS ORDERED: LEVO500T2 PO (17:05)
[2019-05-24] MEDS ORDERED: CLON0.1T14 PO (17:05)
[2019-05-24] MEDS ORDERED: POTA10CA43 PO (17:05)
[2019-05-24] MEDS ORDERED: POLY17PO4 PO (17:08)
[2019-05-24] MEDS ORDERED: DOCU-141 PO (17:08)
[2019-05-24] MEDS ORDERED: HYDR-4384 PO (17:08)
--- NOTE | 2019-05-24 19:30 | NUR ---
Received patient awake and alert in bed Farsi speaking, daughter at bedside. No acute distress noted. Complains of headache, will administer PRN Tylenol. No complaints of SOB. Heplock on left forearm is intact and patent. Safety measures initiated. Bed is low and locked, call light within reach. Will continue to monitor.
[2019-05-24] MEDS: ALBUTEROL SULFATE 2.5 MG/3 ML NEBU NEB PRN (19:49)
[2019-05-24] MEDS: GABAPENTIN 400 MG CAPSULE PO SCH (20:13)
[2019-05-24] MEDS: ESCITALOPRAM OXALATE 10 MG TABLET PO SCH (20:13)
[2019-05-24 20:22] VITALS: BP 153/86
[2019-05-24] MEDS: MORPHINE SULFATE 2 MG/1 ML DISP.SYRIN IV PRN (22:02)
[2019-05-25 05:15] VITALS: BP 137/74
--- NOTE | 2019-05-25 06:01 | NUR ---
Patient slept well, no distress noted. Morphine for pain given x1 and was effective. Heplock on the left forearm is intact and patent. Medication given as ordered. Safety measures given. Will endorse to next shift.
[2019-05-25] MEDS: IPRATROPIUM BROMIDE 0.5 MG/2.5 ML NEBU NEB SCH ×2 (07:33→11:01)
--- NOTE | 2019-05-25 07:50 | NUR ---
Awake, alert, oriented x 3, Farsi speaking. O2 at 2L/NC, HHN on going, on moderate high back rest.
[2019-05-25] MEDS: LORATADINE 10 MG TABLET PO SCH (09:16)
[2019-05-25] MEDS: LOSARTAN POTASSIUM 50 MG TABLET PO SCH (09:16)
[2019-05-25] MEDS: FUROSEMIDE 20 MG/2 ML VIAL IV SCH (09:16)
[2019-05-25] MEDS: CLOPIDOGREL 75 MG TABLET PO SCH (09:17)
[2019-05-25] MEDS: AMLODIPINE 5 MG TABLET PO SCH (09:17)
--- NOTE | 2019-05-25 10:48 | NUR ---
Followed up discharge to ARU, spoke with CNbakari call after bed will be available after a discharge
[2019-05-25 11:04] VITALS: BP 112/72
[2019-05-25] MEDS: CEFTRIAXONE 1 G in IV DEXTROSE 5% 50 ML IV SCH (11:44)
--- NOTE | 2019-05-25 14:40 | NUR ---
With discharge order to ARU. Report given to Dara MENDOZA. Family informed. Saline lock removed. Discharged per wheelchair in fair condition with O2 at 2L/NC, not in distress, afebrile.
== END 2019-05-25 14:45 | DRG 205 ==
LOC: ER 20:49 → TELE3 05-21 00:30 → MEDSURG3 05-24 06:04
PROVIDERS: ADMIT Nurse Practitioner Acute Care; ATTEND Internal Medicine
DX: S22.31XA Fracture of one rib, right side, initial encounter for closed fracture (principal); G92 Toxic encephalopathy; N17.0 Acute kidney failure with tubular necrosis; I50.31 Acute diastolic (congestive) heart failure; N39.0 Urinary tract infection, site not specified; D68.59 Other primary thrombophilia; I11.0 Hypertensive heart disease with heart failure; W18.30XA Fall on same level, unspecified, initial encounter; Y92.019 Unspecified place in single-family (private) house as the place of occurrence of the external cause; R09.02 Hypoxemia; E66.9 Obesity, unspecified; Z68.29 Body mass index [BMI] 29.0-29.9, adult; K21.9 Gastro-esophageal reflux disease without esophagitis; K44.9 Diaphragmatic hernia without obstruction or gangrene; N39.3 Stress incontinence (female) (male); Z74.09 Other reduced mobility; R73.03 Prediabetes; Z90.710 Acquired absence of both cervix and uterus; G47.30 Sleep apnea, unspecified; Z98.49 Cataract extraction status, unspecified eye; Z79.02 Long term (current) use of antithrombotics/antiplatelets; J84.10 Pulmonary fibrosis, unspecified; F41.9 Anxiety disorder, unspecified
CPT/HCPCS: 36415; 70030-TC; 71045; 71101; 83735; 84100; 84443; 85025; 87077; 87086; 93307; 94640; A4663; C1758; G0378; J0696; J1885; J1940; J2270; J2920; J2930; J3010; J3590; J7030; J7050; J7060

== ENCOUNTER 2019-05-25 13:59 | Inpatient (IN) | payer MEDICARE, OTHER ==
[~2019-05-25] VITALS: Ht 157.5 cm; Wt 72.1 kg
--- NOTE | 2019-05-25 16:04 | NUR ---
PATIENT IS ADMITTED FROM THE MEDSURGE FLOOR, ALERT, ORIENTED X1-2, NO SOB,RESP EVEN NONLABORED,SKIN WARM AND DRY TO TOUCH, NO SKIN ISSUES NOTED,SKIN IS INTACT, DR MCCLENDON IS AWARE.
[2019-05-25 16:28] VITALS: BP 140/60
[2019-05-25] MEDS ORDERED: CLONIDINE HCL 0.1 MG TABLET PO PRN (16:30)
[2019-05-25] MEDS ORDERED: MECLIZINE HCL 12.5 MG PO PRN (16:30)
[2019-05-25] MEDS ORDERED: SOLIFENACIN SUCCINATE 5 MG TABEC PO SCH (17:00)
[2019-05-25] MEDS ORDERED: MECLIZINE HCL 12.5 MG TABLET PO PRN (17:00)
[2019-05-25] MEDS: ACETAMINOPHEN 325 MG TABLET PO PRN (17:32)
[2019-05-25] MEDS ORDERED: LEVOFLOXACIN 500 MG TABLET PO ONE (18:13)
[2019-05-25] MEDS ORDERED: OXYBUTYNIN CHLORIDE 5 MG TABLET PO SCH (18:48)
[2019-05-25] MEDS: ALBUTEROL SULFATE 2.5 MG/3 ML NEBU NEB PRN (19:01)
--- NOTE | 2019-05-25 20:00 | NUR ---
RECEIVED PT IN BED DURING SHIFT EXCHANGE. PT HAS FAMILY AT BEDSIDE, WILL CONTINUE TO MONITOR.
[2019-05-25 20:40] VITALS: BP 156/86
[2019-05-25] MEDS ORDERED: METOPROLOL TARTRATE 50 MG PO SCH (21:00)
[2019-05-25] MEDS: DOCUSATE SODIUM 100 MG CAPSULE PO SCH (21:20)
[2019-05-25] MEDS: GABAPENTIN 400 MG CAPSULE PO SCH (21:21)
[2019-05-25] MEDS: ESCITALOPRAM OXALATE 10 MG TABLET PO SCH (21:21)
[2019-05-25] MEDS: OXYBUTYNIN CHLORIDE 5 MG TABLET PO SCH (21:23)
[2019-05-25] MEDS: HYDROCODONE/APAP 5-325MG TABLET PO PRN (22:44)
--- NOTE | 2019-05-26 | NUR ---
PT IS RESTING WITH NO SIGNS OF RESPIRATORY DISTRESS. WILL CONTINUE TO MONITOR.
--- NOTE | 2019-05-26 04:00 | NUR ---
PT IS SLEEPING. WILL ENDORSE TO DAY SHIFT. WILL CONTINUE TO MONITOR.
[2019-05-26 04:52] VITALS: BP 139/83
[2019-05-26] MEDS ORDERED: CLONIDINE HCL 0.1 MG TABLET PO PRN (07:15)
[2019-05-26 08:00] VITALS: BP 168/88
[2019-05-26] MEDS: AMLODIPINE 5 MG TABLET PO SCH (08:17)
[2019-05-26] MEDS: FUROSEMIDE 20 MG TABLET PO SCH (08:17)
[2019-05-26] MEDS: LOSARTAN POTASSIUM 50 MG TABLET PO SCH (08:18)
[2019-05-26] MEDS: LORATADINE 10 MG TABLET PO SCH (08:18)
[2019-05-26] MEDS: OXYBUTYNIN CHLORIDE 5 MG TABLET PO SCH ×2 (08:18→16:55)
[2019-05-26] MEDS: HYDROCODONE/APAP 5-325MG TABLET PO PRN ×2 (08:22→16:55)
[2019-05-26] MEDS: MIRALAX 17 GM POWD.PACK PO PRN (08:23)
[2019-05-26] MEDS ORDERED: POTASSIUM CHLORIDE 10 MEQ TAB.PRT.SR PO SCH (09:00)
[2019-05-26 16:00] VITALS: BP 122/75
[2019-05-26] MEDS: LEVOFLOXACIN 250 MG TABLET PO SCH (17:00)
[2019-05-26] MEDS ORDERED: HYDROCORTISONE 1% CREAM 30 GM TUBE TP PRN (17:00)
--- NOTE | 2019-05-26 18:46 | NUR ---
PATIENT IS CONTINUE ON ATB, NO ADVERSE REACTIONS NOTED, NO NAUSEA, NO VOMITING, NO DIARRHEA, PATIENT TOLERATED MEDS AND MEALS WELL, STILL NOTED WITH COUGH, CONTINUE ON O2 2LITER VIA NASAL CANULA, NO DISTRESS NOTED, CONTINUE TO MONITOR
--- NOTE | 2019-05-26 19:20 | NUR ---
RECEIVED PATIENT LYING IN BED. AAOX1-2. ON O2 AT 2LPM VIA NC IN PLACE. O2 SAT AT 94%. VS WNL. NO SIGNS OR SYMPTOMS OF PAIN OR SOB. NEEDS ASSESSED AND ATTENDED TO. SAFETY MEASURE INITIATED AND CALL PEÑA WITHIN REACHED.
[2019-05-26 19:43] VITALS: BP 129/79
[2019-05-26] MEDS: ESCITALOPRAM OXALATE 10 MG TABLET PO SCH (20:11)
[2019-05-26] MEDS: GABAPENTIN 400 MG CAPSULE PO SCH (20:11)
[2019-05-26] MEDS: DOCUSATE SODIUM 100 MG CAPSULE PO SCH (20:11)
[2019-05-27 04:31] VITALS: BP 138/86
--- NOTE | 2019-05-27 05:41 | NUR ---
AAOX1-2. O2 AT 2LPM VIA NC IN PLACE. NO SIGNS OR SYMPTOMS OF PAIN OR SOB. SAFETY MEASURE MAINTAINED AND CALL PEÑA WITHIN REACHED.
[2019-05-27 08:00] VITALS: BP 141/84
[2019-05-27] MEDS: CLOPIDOGREL 75 MG TABLET PO SCH (08:40)
[2019-05-27] MEDS: LOSARTAN POTASSIUM 50 MG TABLET PO SCH (08:40)
[2019-05-27] MEDS: FUROSEMIDE 20 MG TABLET PO SCH (08:41)
[2019-05-27] MEDS: AMLODIPINE 5 MG TABLET PO SCH (08:41)
[2019-05-27] MEDS: OXYBUTYNIN CHLORIDE 5 MG TABLET PO SCH ×2 (08:42→17:25)
[2019-05-27] MEDS: LORATADINE 10 MG TABLET PO SCH (08:42)
[2019-05-27 14:40] VITALS: BP 151/91
[2019-05-27] MEDS: LEVOFLOXACIN 250 MG TABLET PO SCH (17:25)
--- NOTE | 2019-05-27 19:18 | NUR ---
RECEIVED PATIENT LYING IN BED. FAMILY MEMBER PRESENT ON BEDSIDE. PATIENT AAOX1-2. ON O2 AT 2LPM VIA NC IN PLACE. NO SIGNS OR SYMPTOMS OF PAIN OR SOB. O COUGHING NOTED AT THIS TIME. SAFETY MEASURE INITIATED AND CALL PEÑA WITHIN REACHED. CONTINUE TO MONITOR.
[2019-05-27 19:42] VITALS: BP 143/87
--- NOTE | 2019-05-27 20:07 | NUR ---
Patient noted to have frequent cough. Informed RT/Alexis and will give breathing treatment. Also informed Dr. Beard and gave order for Robitussin DM po q4hr PRN for cough. Order noted and will carry out.
[2019-05-27] MEDS: DOCUSATE SODIUM 100 MG CAPSULE PO SCH (20:34)
[2019-05-27] MEDS: GUAIFENESIN/DEXTROMETHORPHAN 5 ML UDC PO PRN (20:34)
[2019-05-27] MEDS: GABAPENTIN 400 MG CAPSULE PO SCH (20:34)
[2019-05-27] MEDS: ESCITALOPRAM OXALATE 10 MG TABLET PO SCH (20:34)
[2019-05-27] MEDS: ALBUTEROL SULFATE 2.5 MG/3 ML NEBU NEB PRN (22:06)
--- NOTE | 2019-05-28 05:17 | NUR ---
AAOX1-2. O2 AT 2LPM VIA NC IN PLACE. NO SIGNS OR SYMPTOMS OF PAIN OR SOB. NO FURTHER COUGHING NOTED. SAFETY MEASURE MAINTAINED AND CALL PEÑA WITHIN REACHED.
[2019-05-28 06:23] VITALS: BP 145/72
[2019-05-28 07:33] VITALS: BP 159/85
[2019-05-28] MEDS: AMLODIPINE 5 MG TABLET PO SCH (09:34)
[2019-05-28] MEDS: FUROSEMIDE 20 MG TABLET PO SCH (09:34)
[2019-05-28] MEDS: OXYBUTYNIN CHLORIDE 5 MG TABLET PO SCH ×2 (09:35→17:38)
[2019-05-28] MEDS: LORATADINE 10 MG TABLET PO SCH (09:35)
[2019-05-28] MEDS: LOSARTAN POTASSIUM 50 MG TABLET PO SCH (09:49)
--- NOTE | 2019-05-28 09:50 | NUR ---
Pt A/O x2 to person and place. No distress noted or reported. Pt denied any pain or discomfort at this time. Pt showered, now working with OT. VS stable. All morning meds administered per MD orders. Pt on fall precautions. Bed in lowest position, side rails up x2, call light within reach, instructed to utilize call light for assistance as needed. Pt educated on plan of care. Pt verbalized understanding. All safety precautions in place. Monitoring continued.
[2019-05-28] MEDS: ONDANSETRON HCL 4 MG TABLET PO PRN ×2 (11:10→17:37)
--- NOTE | 2019-05-28 11:29 | NUR ---
INDIVIDUALIZE OVERALL PLAN OF CARE
[2019-05-28 14:51] VITALS: BP 144/80
[2019-05-28] MEDS: LEVOFLOXACIN 250 MG TABLET PO SCH (17:37)
--- NOTE | 2019-05-28 18:17 | NUR ---
Noted copious amount liquid green emesis on bathroom floor when pt pulled call light. Pt moaning. Pt cleaned and helped back to bed. Bathroom floor cleaned. When attempted to utilize arc air operator services, Electrical Appliance Mechanic Diaz, ID#: [id number], stated that pt's speech cannot be translated and that the only word that could be translated was the word "yes". Pt's speech could not be translated despite multiple attempts. Notified Dr. Beard re: the same. New orders received. Pt to have KUB, but tech not available until tomorrow morning. Pt NPO after midnight. Will start PIV and administer Zofran IVP per MD orders.
[2019-05-28] MEDS: IV D5 1/2 NS 1000 ML 1,000 ML IV PRN (18:44)
[2019-05-28] MEDS: ONDANSETRON 4 MG/2 ML VIAL IV PRN (18:59)
[2019-05-28 19:00] VITALS: BP 115/65
--- NOTE | 2019-05-28 19:30 | NUR ---
RECEIVED PATIENT LYING IN BED. FAMILY MEMBER PRESENT ON BEDSIDE. PATIENT AAOX1-2. ON O2 AT 2LPM VIA NC IN PLACE. NO SIGNS OR SYMPTOMS OF PAIN OR SOB. NO COUGHING NOTED AT THIS TIME. IN NO APPARENT DISTRESS. IV SITE ON RIGHT FA INTACT AND PATENT. IVF INFUSING. SAFETY MEASURE INITIATED AND CALL PEÑA WITHIN REACHED. CONTINUE TO MONITOR.
[2019-05-28] MEDS: DOCUSATE SODIUM 100 MG CAPSULE PO SCH (20:04)
[2019-05-28] MEDS: ESCITALOPRAM OXALATE 10 MG TABLET PO SCH (20:04)
[2019-05-28] MEDS: GABAPENTIN 400 MG CAPSULE PO SCH (20:04)
[2019-05-28] MEDS: GUAIFENESIN/DEXTROMETHORPHAN 5 ML UDC PO PRN (20:09)
--- NOTE | 2019-05-28 20:25 | NUR ---
INFORMED DR. WILBURN THAT PATIENT HAS NOT HAD ANY BM SINCE 05/22/19 ACCORDING TO THE RECORD. PATIENT DAUGHTER STATED THAT PATIENT HAD A BM ON Saturday05/24/19. DR. WILBURN WITH ORDER TO GIVE PATIENT DULCOLAX SUPP. 1 RECTALLY DAILY PRN FOR CONSTIPATION. ORDER NOTED AND WILL CARRY OUT.
[2019-05-28] MEDS ORDERED: BISACODYL 10 MG SUPP.RECT RC PRN (20:30)
[2019-05-28] MEDS: ALBUTEROL SULFATE 2.5 MG/3 ML NEBU NEB PRN (20:52)
--- NOTE | 2019-05-29 05:14 | NUR ---
PATIENT AAOX1-2. ON O2 AT 2LPM VIA NC IN PLACE. IN NO APPARENT DISTRESS. IV SITE ON RIGHT FA INTACT AND PATENT. IVF INFUSING. NO NAUSEA OR VOMITING. SAFETY MEASURE MAINTAINED AND CALL PEÑA WITHIN REACHED.
[2019-05-29 05:33] VITALS: BP 129/69
[2019-05-29 07:41] LABS: CREATININE 1.1 mg/dL (0.6-1.3); PHOSPHOROUS 4.1 mg/dL (2.5-4.9); POTASSIUM 3.5 mmol/L (3.5-5.1)
[2019-05-29 07:50] LABS: BASOPHILS # (AUTO) 0.1 K/uL (0.0-8.0); BASOPHILS % (AUTO) 0.7 % (0.0-2.0); EOSINOPHILS # (AUTO) 0.2 K/uL (0.0-0.7); EOSINOPHILS % (AUTO) 2.2 % (0.0-7.0); LYMPHOCYTES # (AUTO) 1.1 K/uL (20.0-40.0); LYMPHOCYTES % (AUTO) 13.7 % (20.5-51.5); MEAN CORPUSCULAR HEMOGLOBIN 30.2 uug (24.7-32.8); MEAN CORPUSCULAR HGB CONC 33 g/dL (32.3-35.6); MEAN CORPUSCULAR VOLUME 90.9 fL (75.5-95.3); MONOCYTES # (AUTO) 0.7 K/uL (2.0-10.0); MONOCYTES % (AUTO) 9.2 % (0.0-11.0); NEUTROPHILS # (AUTO) 5.8 K/uL (1.8-8.9); NEUTROPHILS % (AUTO) 74.2 % (38.5-71.5); PLATELET COUNT (AUTO) 168 K/uL (179-408); RED BLOOD CELL COUNT(AUTO) 3.63 MIL/uL (3.63-4.92); WHITE BLOOD COUNT (AUTO) 7.8 K/uL (3.8-11.8)
[2019-05-29 08:00] VITALS: BP 121/66
[2019-05-29] MEDS: CLOPIDOGREL 75 MG TABLET PO SCH (08:56)
[2019-05-29] MEDS: OXYBUTYNIN CHLORIDE 5 MG TABLET PO SCH ×2 (08:56→17:49)
[2019-05-29] MEDS: AMLODIPINE 5 MG TABLET PO SCH (08:57)
[2019-05-29] MEDS: LOSARTAN POTASSIUM 50 MG TABLET PO SCH (08:57)
[2019-05-29] MEDS: FUROSEMIDE 20 MG TABLET PO SCH (08:57)
[2019-05-29] MEDS: LORATADINE 10 MG TABLET PO SCH (08:57)
[2019-05-29] MEDS: GUAIFENESIN/DEXTROMETHORPHAN 5 ML UDC PO PRN ×2 (08:59→14:43)
--- NOTE | 2019-05-29 10:00 | NUR ---
Pt A/O x to person. Pt confused. Pt's daughter at bedside. No distress noted or reported. Pt denied any pain or discomfort at this time. Pt showered. VS stable. All morning meds administered per MD orders. Pt on fall precautions. Bed in lowest position, side rails up x2, call light within reach, instructed to utilize call light for assistance as needed. Pt and pt's daughter, Bonnie ([phone]), educated on plan of care. Bonnie verbalized understanding. All safety precautions in place. Monitoring continued.
[2019-05-29] MEDS ORDERED: LACTULOSE 20 G/30 ML LIQUID UDC PO PRN (11:15)
[2019-05-29] MEDS: IV D5 1/2 NS 1000 ML 1,000 ML IV PRN (11:52)
[2019-05-29] MEDS: MIRALAX 17 GM POWD.PACK PO PRN (14:53)
--- NOTE | 2019-05-29 14:59 | NUR ---
INTERDISCIPLINARY TEAM CONFERENCE
[2019-05-29] MEDS: ALBUTEROL SULFATE 2.5 MG/3 ML NEBU NEB PRN (19:19)
--- NOTE | 2019-05-29 19:35 | NUR ---
AWAKE, IN BED, NOT IN DISTRESS. DAUGHTERS AT BEDSIDE. DENIES ANY PAIN/DISCOMFORTS AT THIS TIME. SAFETY MEASURE AND FALL PREVENTION MAINTAINED. CONTINUE CARE PLANNED.
[2019-05-29] MEDS: GABAPENTIN 400 MG CAPSULE PO SCH (20:31)
[2019-05-29] MEDS: DOCUSATE SODIUM 100 MG CAPSULE PO SCH (20:32)
[2019-05-29] MEDS: ESCITALOPRAM OXALATE 10 MG TABLET PO SCH (20:32)
[2019-05-29 20:47] VITALS: BP 110/60
[2019-05-29] MEDS: ACETAMINOPHEN 325 MG TABLET PO PRN (21:15)
--- NOTE | 2019-05-29 21:15 | NUR ---
COMPLAINT OF HEADACHE, TYLENOL GIVEN NEEDED AND ORDERED. WILL MONITOR.
[2019-05-30] MEDS: IV D5 1/2 NS 1000 ML 1,000 ML IV PRN (04:14)
[2019-05-30 05:47] VITALS: BP 139/71
--- NOTE | 2019-05-30 06:48 | NUR ---
SHIFT END REPORT: VS STABLE. NO FURTHER COMPLAINT PRESENTED. SLEPT GOOD. ALL NEEDS ATTENDED AND MET. NO SIGNIFICANT EVENT REPORTED. CONTINUE CURRENT REHAB PLAN OF CARE.
--- NOTE | 2019-05-30 07:56 | NUR ---
Patient noted resting in bed with eyes closed, no complaints of pain noted, no signs of distress noted, no IV placed in left wrist 22 g, IV fluids continued as displayed in medical record, call light in reach bed locked and in lowest position, all needs met.
[2019-05-30 08:46] VITALS: BP 131/69
[2019-05-30] MEDS: OXYBUTYNIN CHLORIDE 5 MG TABLET PO SCH ×2 (08:58→17:54)
[2019-05-30] MEDS: FUROSEMIDE 20 MG TABLET PO SCH (08:58)
[2019-05-30] MEDS: LORATADINE 10 MG TABLET PO SCH (08:58)
[2019-05-30] MEDS: LOSARTAN POTASSIUM 50 MG TABLET PO SCH (08:58)
[2019-05-30] MEDS: AMLODIPINE 5 MG TABLET PO SCH (08:59)
[2019-05-30 15:50] VITALS: BP 180/97
[2019-05-30] MEDS: ESCITALOPRAM OXALATE 10 MG TABLET PO SCH (20:09)
[2019-05-30] MEDS: GABAPENTIN 400 MG CAPSULE PO SCH (20:09)
[2019-05-30] MEDS: DOCUSATE SODIUM 100 MG CAPSULE PO SCH (20:09)
[2019-05-30 21:02] VITALS: BP 164/78
[2019-05-31 05:42] VITALS: BP 148/73
--- NOTE | 2019-05-31 06:29 | NUR ---
Patient slept well. On O2 at 2lpm via NC. No complaints of pain at this time. IV on L wrist 22g intact and patent w/ IVF infusing. All needs attended. Will endorse accordingly
[2019-05-31] MEDS: OXYBUTYNIN CHLORIDE 5 MG TABLET PO SCH ×2 (08:46→17:15)
[2019-05-31] MEDS: LORATADINE 10 MG TABLET PO SCH (08:46)
[2019-05-31] MEDS: FUROSEMIDE 20 MG TABLET PO SCH (08:46)
[2019-05-31] MEDS: CLOPIDOGREL 75 MG TABLET PO SCH (08:46)
[2019-05-31] MEDS: LOSARTAN POTASSIUM 50 MG TABLET PO SCH (08:47)
[2019-05-31] MEDS: AMLODIPINE 5 MG TABLET PO SCH (08:47)
--- NOTE | 2019-05-31 10:30 | NUR ---
Patient noted resting in bed , no complaints of pain noted, no signs of distress noted, IV noted in right wrist 22 g, patient assisted to restroom at this time, IV fluids stopped while patient is away for therapy, call light in reach bed locked and in lowest position, all needs met.
[2019-05-31 10:50] VITALS: BP 129/65
[2019-05-31 15:57] VITALS: BP 163/87
--- NOTE | 2019-05-31 19:35 | NUR ---
In bed, awake, watching TV this time, HOB elevated, No s/s of respiratory distress. IVF infusing right hand G#22, no s/s of infiltration/redness/swelling noted. Denies pain at this time. Daughter at bedside. Safety measure and fall precaution maintained. Continue plan of care.
[2019-05-31] MEDS: DOCUSATE SODIUM 100 MG CAPSULE PO SCH (20:23)
[2019-05-31] MEDS: ESCITALOPRAM OXALATE 10 MG TABLET PO SCH (20:23)
[2019-05-31] MEDS: GABAPENTIN 400 MG CAPSULE PO SCH (20:24)
[2019-05-31 20:50] VITALS: BP 153/81
[2019-06-01 05:45] VITALS: BP 154/78
--- NOTE | 2019-06-01 06:26 | NUR ---
Shift End Report: VS stable. Slept well. No complaint presented. No significant event reported all night. Continue current rehab plan of care.
[2019-06-01] MEDS: IV D5 1/2 NS 1000 ML 1,000 ML IV PRN (06:52)
[2019-06-01 08:00] VITALS: BP 176/89
[2019-06-01] MEDS: LORATADINE 10 MG TABLET PO SCH (08:07)
[2019-06-01] MEDS: FUROSEMIDE 20 MG TABLET PO SCH (08:07)
[2019-06-01] MEDS: OXYBUTYNIN CHLORIDE 5 MG TABLET PO SCH ×2 (08:07→16:56)
[2019-06-01] MEDS: LOSARTAN POTASSIUM 50 MG TABLET PO SCH (08:08)
[2019-06-01] MEDS: AMLODIPINE 5 MG TABLET PO SCH (08:08)
[2019-06-01 10:30] VITALS: BP 136/78
[2019-06-01 16:00] VITALS: BP 156/83
[2019-06-01] MEDS: ALBUTEROL SULFATE 2.5 MG/3 ML NEBU NEB PRN (20:07)
[2019-06-01] MEDS: ESCITALOPRAM OXALATE 10 MG TABLET PO SCH (20:16)
[2019-06-01] MEDS: GABAPENTIN 400 MG CAPSULE PO SCH (20:16)
[2019-06-01] MEDS: DOCUSATE SODIUM 100 MG CAPSULE PO SCH (20:16)
[2019-06-01 21:16] VITALS: BP 136/72
--- NOTE | 2019-06-01 22:00 | NUR ---
Sleeping during initial rounds. No s/s of respiratory distress. IVF infusing on right hand, no redness/infiltration noted. Safety measure and fall precaution maintained.
[2019-06-02] MEDS: IV D5 1/2 NS 1000 ML 1,000 ML IV PRN (03:23)
[2019-06-02 05:00] VITALS: BP 142/88
--- NOTE | 2019-06-02 06:39 | NUR ---
Shift End Report: VS stable. Slept well. No significant event reported all night. Continue current rehab plan of care.
[2019-06-02 07:33] VITALS: BP 158/81
[2019-06-02] MEDS: CLOPIDOGREL 75 MG TABLET PO SCH (08:30)
[2019-06-02] MEDS: FUROSEMIDE 20 MG TABLET PO SCH (08:30)
[2019-06-02] MEDS: AMLODIPINE 10 MG TABLET PO SCH (08:30)
[2019-06-02] MEDS: OXYBUTYNIN CHLORIDE 5 MG TABLET PO SCH ×2 (08:31→16:47)
[2019-06-02] MEDS: LORATADINE 10 MG TABLET PO SCH (08:31)
[2019-06-02] MEDS: LOSARTAN POTASSIUM 50 MG TABLET PO SCH (08:39)
[2019-06-02] MEDS: ACETAMINOPHEN 325 MG TABLET PO PRN (08:40)
[2019-06-02] MEDS ORDERED: AMLODIPINE 5 MG TABLET PO SCH (09:00)
[2019-06-02] MEDS: ONDANSETRON 4 MG/2 ML VIAL IV PRN (09:22)
--- NOTE | 2019-06-02 11:29 | NUR ---
patient had a episode of vomiting after breakfast in the therapy, zofran administered as ordered, effective, spoke to daughter and stated that patient was at PPI dexilent at home, daughter will bring it from home. will consider to restart as MD order
--- NOTE | 2019-06-02 12:38 | NUR ---
PATIENT NOTED WITH POOR PO INTAKE. PATIENT STATED SHE DOES NOT LIKE THE FOOD BECAUSE IT DOES NOT HAVE SALT. TRY TO EXPLAIN TO THE CARDIAC AND LOW SALT DIET FOR BETTER MANAGEMENT OF BLOOD PRESSURE IN PATIENT LANGUAGE WITH ANOTHER NURSE. NOTED WITH POOR UNDERSTANDING OF DIET. PATIENT JUST KEPT SAYING SHE DOES NOT LIKE THE FOOD, SHE LIKES TO EAT FROM HOME.
[2019-06-02 15:39] VITALS: BP 147/76
[2019-06-02] MEDS: ALBUTEROL SULFATE 2.5 MG/3 ML NEBU NEB PRN ×2 (15:56→19:14)
--- NOTE | 2019-06-02 18:11 | NUR ---
PER DAUGHTER STATED PATIENT JUST DOES NOT LIKE THE FOOD FROM HERE, PATIENT EATS GOOD WHENEVER DAUGHTER BRINGS IT FROM OUTSIDE, WILL MONITOR, PATIENT REFUSED IV FLUIDS, PER DR LEES CHECK THE BUN, IF IT IS GOOD, ITS OK TO DISCONTINUE IV FLUIDS
--- NOTE | 2019-06-02 18:13 | NUR ---
ORDERED LABS FOR TODAY, STILL PENDING
[2019-06-02] MEDS: GABAPENTIN 400 MG CAPSULE PO SCH (20:36)
[2019-06-02] MEDS: ESCITALOPRAM OXALATE 10 MG TABLET PO SCH (20:36)
[2019-06-02] MEDS: DOCUSATE SODIUM 100 MG CAPSULE PO SCH (20:36)
[2019-06-02 20:40] VITALS: BP 119/65
--- NOTE | 2019-06-02 22:14 | NUR ---
Awake during initial rounds, in bed, daughter at bedside. HOB elevated with O2 at 2L via NC. not in distress, saturating well. Denies any pain/discomforts at this time. Safety measure and fall precaution maintained. Continue care as planned.
[2019-06-03 05:00] VITALS: BP 153/78
[2019-06-03] MEDS: DEXLANSOPRAZOLE 60 MG PO SCH (05:45)
[2019-06-03] MEDS: [UNRECOGNIZED DRUG - OTHER] PO SCH (05:45)
[2019-06-03 07:24] LABS: BASOPHILS # (AUTO) 0.1 K/uL (0.0-8.0); EOSINOPHILS # (AUTO) 0.4 K/uL (0.0-0.7); HEMATOCRIT 32.3 % (31.2-41.9); HEMOGLOBIN 10.9 g/dL (10.9-14.3); LYMPHOCYTES # (AUTO) 1.1 K/uL (20.0-40.0); LYMPHOCYTES % (AUTO) 14.2 % (20.5-51.5); MEAN CORPUSCULAR HGB CONC 34 g/dL (32.3-35.6); MEAN CORPUSCULAR VOLUME 89.2 fL (75.5-95.3); MONOCYTES # (AUTO) 0.6 K/uL (2.0-10.0); MONOCYTES % (AUTO) 7.5 % (0.0-11.0); NEUTROPHILS # (AUTO) 5.8 K/uL (1.8-8.9); NEUTROPHILS % (AUTO) 72.3 % (38.5-71.5); PLATELET COUNT (AUTO) 238 K/uL (179-408); RED BLOOD CELL COUNT(AUTO) 3.62 MIL/uL (3.63-4.92)
[2019-06-03 07:31] LABS: CREATININE 0.8 mg/dL (0.6-1.3); POTASSIUM 2.9 mmol/L (3.5-5.1)
[2019-06-03 08:00] VITALS: BP 161/92
--- NOTE | 2019-06-03 08:53 | NUR ---
paged dr antonio for abnormal labs.
[2019-06-03] MEDS: LOSARTAN POTASSIUM 50 MG TABLET PO SCH (09:01)
[2019-06-03] MEDS: OXYBUTYNIN CHLORIDE 5 MG TABLET PO SCH ×2 (09:01→17:21)
[2019-06-03] MEDS: AMLODIPINE 10 MG TABLET PO SCH (09:01)
[2019-06-03] MEDS: FUROSEMIDE 20 MG TABLET PO SCH (09:01)
[2019-06-03] MEDS: LORATADINE 10 MG TABLET PO SCH (09:01)
--- NOTE | 2019-06-03 09:23 | NUR ---
received order to replace potassium 40meq today and on day after tomorrow, order noted
[2019-06-03] MEDS ORDERED: POTASSIUM CHLORIDE 10 MEQ TAB.PRT.SR PO ONE (10:00)
[2019-06-03] MEDS ORDERED: POTASSIUM CHLORIDE 20 MEQ POWDER PACKET PO ONE (10:00)
--- NOTE | 2019-06-03 11:51 | NUR ---
CLARIFIED THE ORDER FOR POTASSIUM EXTRA DOSE, REPLACING TODAY AFTER 4 HOURS FROM MORNING DOSE, DISCONTINUED THE DOSE FOR 06/05
[2019-06-03] MEDS ORDERED: POTASSIUM CHLORIDE 20 MEQ TAB.PRT.SR PO ONE (14:00)
[2019-06-03 16:34] VITALS: BP 146/68
--- NOTE | 2019-06-03 18:40 | NUR ---
Patient is AAOx 2-3, Farsi speaking mostly, NO SOB noted. Vital signs stable for patient. patient noted with abnormal labs of Potassium 2.9 with an order to replace potassium during shift. Med administered as ordered and tolerated well. Also informed family regarding labs and medication, patient and family verbalized understanding. Patient also noted eating banana with family. Pt. on PT/OT therapy as ordered. NO c/o pain during shift. Needs met, safety measures in place, call light left at bed side and will continue with care.
--- NOTE | 2019-06-03 19:05 | NUR ---
Patient on O2 NC at 2lpm continuos with O2 sat of 95-98%.
[2019-06-03 20:14] VITALS: BP 125/71
[2019-06-03] MEDS: DOCUSATE SODIUM 100 MG CAPSULE PO SCH (20:31)
[2019-06-03] MEDS: GABAPENTIN 400 MG CAPSULE PO SCH (20:31)
[2019-06-03] MEDS: ESCITALOPRAM OXALATE 10 MG TABLET PO SCH (20:31)
[2019-06-03] MEDS: ACETAMINOPHEN 325 MG TABLET PO PRN (20:38)
[2019-06-04 04:54] VITALS: BP 121/68
[2019-06-04] MEDS: DEXLANSOPRAZOLE 60 MG PO SCH (05:42)
[2019-06-04] MEDS: [UNRECOGNIZED DRUG - OTHER] PO SCH (05:42)
--- NOTE | 2019-06-04 06:43 | NUR ---
Shift End Report: VS stable. Slept well. Tolerating O2 at 2L/min. No significant eventreported. Continue care as planned.
[2019-06-04 07:46] LABS: CREATININE 0.7 mg/dL (0.6-1.3)
[2019-06-04 08:00] VITALS: BP 129/72
[2019-06-04] MEDS: OXYBUTYNIN CHLORIDE 5 MG TABLET PO SCH ×2 (09:34→16:56)
[2019-06-04] MEDS: LOSARTAN POTASSIUM 50 MG TABLET PO SCH (09:34)
[2019-06-04] MEDS: CLOPIDOGREL 75 MG TABLET PO SCH (09:46)
[2019-06-04] MEDS: FUROSEMIDE 20 MG TABLET PO SCH (09:46)
[2019-06-04] MEDS: LORATADINE 10 MG TABLET PO SCH (09:47)
[2019-06-04] MEDS: AMLODIPINE 10 MG TABLET PO SCH (09:47)
[2019-06-04 16:00] VITALS: BP 126/74
[2019-06-04] MEDS ORDERED: Z GUARD REMEDY PASTE 57 GM TUBE TOP PRN (16:00)
--- NOTE | 2019-06-04 19:28 | NUR ---
Patient is AAO x 2-3. NO acute distress noted. ON O2 NC at 2lpm with O2 sating 95%-97%. No new change of condition noted. Vital signs stable, labs stable for patient. Due medications administered as ordered and scheduled.on PT/OT therapy, uses a waker and 1 person assist. Needs attended and met, safety measures in place, call light left at bed side, endorsed to next shift and will continue with care.
--- NOTE | 2019-06-04 19:35 | NUR ---
Sleeping during initial rounds with HOB elevated. Continuos O2 at 2L via NC, saturating 97%. Safety measure and fall precaution maintained. Continue care as planned.
[2019-06-04 20:19] VITALS: BP 136/73
[2019-06-04] MEDS: DOCUSATE SODIUM 100 MG CAPSULE PO SCH (20:41)
[2019-06-04] MEDS: ESCITALOPRAM OXALATE 10 MG TABLET PO SCH (20:41)
[2019-06-04] MEDS: GABAPENTIN 400 MG CAPSULE PO SCH (20:41)
[2019-06-05 05:56] VITALS: BP 124/67
[2019-06-05] MEDS: DEXLANSOPRAZOLE 60 MG PO SCH (06:01)
[2019-06-05] MEDS: [UNRECOGNIZED DRUG - OTHER] PO SCH (06:01)
[2019-06-05 07:30] VITALS: BP 150/87
[2019-06-05] MEDS: LORATADINE 10 MG TABLET PO SCH (09:05)
[2019-06-05] MEDS: LOSARTAN POTASSIUM 50 MG TABLET PO SCH (09:08)
[2019-06-05] MEDS: FUROSEMIDE 20 MG TABLET PO SCH (09:09)
[2019-06-05] MEDS: OXYBUTYNIN CHLORIDE 5 MG TABLET PO SCH ×2 (09:09→17:00)
[2019-06-05] MEDS: AMLODIPINE 10 MG TABLET PO SCH (09:10)
[2019-06-05] MEDS ORDERED: POTASSIUM CHLORIDE 10 MEQ TAB.PRT.SR PO ONE (10:00)
--- NOTE | 2019-06-05 13:49 | NUR ---
INTERDISCIPLINARY TEAM CONFERENCE
[2019-06-05 15:30] VITALS: BP 123/69
--- NOTE | 2019-06-05 19:30 | NUR ---
PT awake, daughter at bedside; not in distress; made comfortable
[2019-06-05] MEDS: ALBUTEROL SULFATE 2.5 MG/3 ML NEBU NEB PRN (19:52)
[2019-06-05] MEDS: ESCITALOPRAM OXALATE 10 MG TABLET PO SCH (20:06)
[2019-06-05] MEDS: GABAPENTIN 400 MG CAPSULE PO SCH (20:06)
[2019-06-05] MEDS: DOCUSATE SODIUM 100 MG CAPSULE PO SCH (20:06)
[2019-06-05 20:32] VITALS: BP 146/77
[2019-06-06] MEDS: ACETAMINOPHEN 325 MG TABLET PO PRN ×3 (02:08→23:14)
--- NOTE | 2019-06-06 02:30 | NUR ---
c/o pain; tylenol given; will reassess.
[2019-06-06 05:25] VITALS: BP 132/74
[2019-06-06] MEDS: DEXLANSOPRAZOLE 60 MG PO SCH (06:10)
[2019-06-06] MEDS: [UNRECOGNIZED DRUG - OTHER] PO SCH (06:10)
--- NOTE | 2019-06-06 06:33 | NUR ---
pt rested; safety maintained; continue plan of care.
[2019-06-06 06:45] LABS: CREATININE 0.8 mg/dL (0.6-1.3); POTASSIUM 3.6 mmol/L (3.5-5.1)
[2019-06-06 08:00] VITALS: BP 134/75
[2019-06-06] MEDS: LOSARTAN POTASSIUM 50 MG TABLET PO SCH (08:55)
[2019-06-06] MEDS: AMLODIPINE 10 MG TABLET PO SCH (08:55)
[2019-06-06] MEDS: LORATADINE 10 MG TABLET PO SCH (08:55)
[2019-06-06] MEDS: FUROSEMIDE 20 MG TABLET PO SCH (08:55)
[2019-06-06] MEDS: OXYBUTYNIN CHLORIDE 5 MG TABLET PO SCH ×2 (08:56→16:26)
[2019-06-06] MEDS: CLOPIDOGREL 75 MG TABLET PO SCH (08:56)
[2019-06-06 16:05] VITALS: BP 114/67
--- NOTE | 2019-06-06 17:50 | NUR ---
Patient is AAO x3, NO acute distress noted. PT. on O2 NC at 2LPM as ordered with O2 saturation of 94% at this time. Afebrile. Vital signs stable. Due meds administered as ordered. NO new change of condition noted. Patient with one person assist with care and BRP. Assisted with care, needs attended and met. Safety measures in place, call light left at bed side, family was here to visit and will continue with care.
[2019-06-06 20:25] VITALS: BP 121/65
[2019-06-06] MEDS: ESCITALOPRAM OXALATE 10 MG TABLET PO SCH (21:12)
[2019-06-06] MEDS: GABAPENTIN 400 MG CAPSULE PO SCH (21:13)
[2019-06-06] MEDS: DOCUSATE SODIUM 100 MG CAPSULE PO SCH (21:13)
[2019-06-07] MEDS: HYDROCODONE/APAP 5-325MG TABLET PO PRN (03:22)
[2019-06-07 05:32] VITALS: BP 143/82
[2019-06-07] MEDS: DEXLANSOPRAZOLE 60 MG PO SCH (06:23)
[2019-06-07] MEDS: [UNRECOGNIZED DRUG - OTHER] PO SCH (06:23)
--- NOTE | 2019-06-07 06:48 | NUR ---
Shift end report: Vs stable. Presented complaint of right rib pain x2, medicated as ordered and needed with relief. All needs attended and met. No significant event reported. Continue current rehab plan of care.
[2019-06-07 08:00] VITALS: BP 133/74
[2019-06-07] MEDS: FUROSEMIDE 20 MG TABLET PO SCH (08:35)
[2019-06-07] MEDS: LOSARTAN POTASSIUM 50 MG TABLET PO SCH (08:37)
[2019-06-07] MEDS: LORATADINE 10 MG TABLET PO SCH (08:37)
[2019-06-07] MEDS: AMLODIPINE 10 MG TABLET PO SCH (08:37)
[2019-06-07] MEDS: OXYBUTYNIN CHLORIDE 5 MG TABLET PO SCH ×2 (08:37→17:09)
[2019-06-07 16:34] VITALS: BP 133/74
--- NOTE | 2019-06-07 18:09 | NUR ---
Patient in stable condition, No acute distress noted. Pt. on O2 NC at 2LPM continuos. Vital signs stable for patient. Due medications administered and tolerated well. NO new change of condition noted at this time. Pt. on PT/OT therapy. Daughter at bed side at this time and discussed plan of care. Informed daughter to talk to disability case manager and MD regarding plan for discharge and daughter stated understanding. All other needs attended, safety measures in place, call light left at bed side and will continue with care.
--- NOTE | 2019-06-07 19:35 | NUR ---
Sleeping at this time, daughter at bedside. No s/s of respiratory distress noted. HOB elevated with O2 at 2L/min via NC saturating 97% at this time. Safety measures and fall precaution maintained. Continue care as planned.
[2019-06-07 20:25] VITALS: BP 148/77
[2019-06-07] MEDS: ESCITALOPRAM OXALATE 10 MG TABLET PO SCH (20:49)
[2019-06-07] MEDS: DOCUSATE SODIUM 100 MG CAPSULE PO SCH (20:49)
[2019-06-07] MEDS: GABAPENTIN 400 MG CAPSULE PO SCH (20:50)
[2019-06-08 05:18] VITALS: BP 152/89
[2019-06-08] MEDS: DEXLANSOPRAZOLE 60 MG PO SCH (06:08)
[2019-06-08] MEDS: [UNRECOGNIZED DRUG - OTHER] PO SCH (06:08)
[2019-06-08] MEDS: ACETAMINOPHEN 325 MG TABLET PO PRN (06:24)
--- NOTE | 2019-06-08 06:27 | NUR ---
Shift End Report: VS stable. Slept in between care. Assisted to the bathroom with walker with slow unsteady gait for bladder elimination. Voided good, no problem presented. Good skin/johann care provided. Medicated once for right rib pain with relief. No further complaint presented. All needs attended and met. Continue current rehab plan of care. No significant event reported all night.
[2019-06-08 07:29] LABS: CREATININE 0.8 mg/dL (0.6-1.3); POTASSIUM 3.5 mmol/L (3.5-5.1)
[2019-06-08 09:14] VITALS: BP 153/89
[2019-06-08] MEDS: LORATADINE 10 MG TABLET PO SCH (10:19)
[2019-06-08] MEDS: OXYBUTYNIN CHLORIDE 5 MG TABLET PO SCH ×2 (10:20→16:44)
[2019-06-08] MEDS: LOSARTAN POTASSIUM 50 MG TABLET PO SCH (10:20)
[2019-06-08] MEDS: AMLODIPINE 10 MG TABLET PO SCH (10:21)
[2019-06-08] MEDS: FUROSEMIDE 20 MG TABLET PO SCH (10:21)
[2019-06-08] MEDS: CLOPIDOGREL 75 MG TABLET PO SCH (10:21)
[2019-06-08 16:52] VITALS: BP 160/92
--- NOTE | 2019-06-08 18:30 | NUR ---
daughter at bedside all home instructions and follow-up reviewed with daughter. discharged to daughter via w/c by RN. Dr. Ordoñez in earlier to see pt.
== END 2019-06-08 16:30 | disposition home health service (06) | DRG 559 ==
PROVIDERS: ADMIT Physical Medicine & Rehabilitation Pain Medicine; ATTEND Physical Medicine & Rehabilitation Pain Medicine
DX: S22.31XD Fracture of one rib, right side, subsequent encounter for fracture with routine healing (principal); G92 Toxic encephalopathy; I50.31 Acute diastolic (congestive) heart failure; N17.0 Acute kidney failure with tubular necrosis; D68.59 Other primary thrombophilia; N39.0 Urinary tract infection, site not specified; E87.1 Hypo-osmolality and hyponatremia; I11.0 Hypertensive heart disease with heart failure; E66.9 Obesity, unspecified; Z68.29 Body mass index [BMI] 29.0-29.9, adult; R73.03 Prediabetes; W18.30XD Fall on same level, unspecified, subsequent encounter; R53.1 Weakness; E87.6 Hypokalemia; G47.30 Sleep apnea, unspecified; K21.9 Gastro-esophageal reflux disease without esophagitis; K59.00 Constipation, unspecified; Z90.710 Acquired absence of both cervix and uterus; M54.5 Low back pain; R05 Cough; N39.3 Stress incontinence (female) (male)
CPT/HCPCS: 36415; 71045; 74018; 83735; 84100; 85025; 94640; 94664; J2405; J3490; J8597; Q0162